=== PATIENT | female | born 1975 | race Caucasian/White ===

== ENCOUNTER 2017-01-08 07:03 | Day surgery (SDC) | payer BC ==
--- NOTE | ~2017-01-08 | EGD ---
EGD REPORT [facility] [address] [place] [address] NAME: ROB BLAIR : [birth year] STATUS : REG [facility]#: [id number] AGE: 41 ADM/REG DATE : 01/08/17 MR#: [id number] REPORT SERV DATE: 01/08/17 DICTATED BY: FLORA PONCE DATE: 01/08/17 REPORT STATUS : Draft [facility]ANSCRIBED BY: [facility] DATE: 01/08/17 [facility] Patient Name: Rob lBair Date of : 1975 Attending MD: FLORA PONCE MD Procedure Date No Time: 01/08/2017 Procedure: Colonoscopy Indications: Screening in patient at increased risk: Family history 1st-degree relative with colorectal cancer < 60 years old, FH of Colonic Polyps - 1st degree relative Referring MD: ELI PACHECO MD Medicines: as per anesthesia Complications: No immediate complications. Procedure: Pre-Anesthesia Assessment: - ASA Grade Assessment: II - A patient with mild systemic disease. After I obtained informed consent, the scope was passed under direct vision. Throughout the procedure, the patient's blood pressure, pulse, and oxygen saturations were monitored continuously. The PCF [id number] was introduced through the anus and advanced to the cecum, identified by appendiceal orifice and ileocecal valve. The colonoscopy was performed without difficulty. The patient tolerated the procedure. The quality of the bowel preparation was fair. Findings: The perianal and digital rectal examinations were normal. Internal hemorrhoids were found during endoscopy and were mild. Impression: - Internal hemorrhoids. Recommendation: - Repeat colonoscopy in 3 years for surveillance. Procedure Code(s): --- Professional --- 87903, Colonoscopy, flexible, proximal to splenic flexure; diagnostic, with or without collection of specimen(s) by brushing or washing, with or without colon decompression (separate procedure) Diagnosis Code(s): --- Professional --- K64.8, Other hemorrhoids Z12.11, Encounter for screening for malignant neoplasm of colon Z80.0, Family history of malignant neoplasm of digestive EGD REPORT [facility] [id number] [id number] NAME: ROB BLAIR : [birth year] STATUS : REG [facility]#: [id number] AGE: 41 ADM/REG DATE : 01/08/17 MR#: [id number] REPORT SERV DATE: 01/08/17 DICTATED BY: FLORA PONCE. DATE: 01/08/17 REPORT STATUS : Draft TRANSCRIBED BY: [employer] DATE: 01/08/17 organs Z83.71, Family history of colonic polyps CPT copyright 2013 [employer]. All rights reserved. The codes documented in this report are preliminary and upon ballistic expert review may be revised to meet current compliance requirements. FLORA PONCE MD 01/08/2017 9:11 AM This report has been signed electronically. Number of Addenda: 0 Note Initiated On: 01/08/2017 8:30 AM Scope Withdrawal Time 0 hours 14 minutes 39 seconds [id number] [id number]
[~2017-01-08 07:03] MED LIST: ACET500CAP PO; CLARIT10 OR; FLAG500TAB; FLORASTOR250 MG PO; GI COCKTAIL 4040 ML; INDE80LA PO; LEVAQUIN750 MG PO; MAXALT10 MG PO; NEXIUM40 PO; NORCO1 TAB PO; PEP20 PO; PR25 PO; SUCR PO; TOPAMAX100 PO; ULTRAM50 PO; ZOL100 PO; ZYRTEC ALLGY10 MG PO
== END 2017-01-08 23:59 | disposition home or self-care (01) ==
LOC: DMU 07:03
PROVIDERS: Internal Medicine Gastroenterology
PROC: 0DJD8ZZ Inspection of Lower Intestinal Tract, Via Natural or Artificial Opening Endoscopic (ICD-10-PCS; principal; 2017-01-08 08:30)
DX: Z12.11 Encounter for screening for malignant neoplasm of colon (principal); K64.8 Other hemorrhoids; G25.81 Restless legs syndrome; F41.9 Anxiety disorder, unspecified; F32.9 Major depressive disorder, single episode, unspecified; K44.9 Diaphragmatic hernia without obstruction or gangrene; K21.9 Gastro-esophageal reflux disease without esophagitis; J30.2 Other seasonal allergic rhinitis; Z98.890 Other specified postprocedural states; Z80.0 Family history of malignant neoplasm of digestive organs; Z83.71 Family history of colonic polyps; Z90.49 Acquired absence of other specified parts of digestive tract; Z87.890 Personal history of sex reassignment
CPT/HCPCS: 84703